=== PATIENT | male | born 1940 ===

== ENCOUNTER 2023-07-12 23:59 | Outpatient (BNV) | payer MEDICARE, MEDICAID, SELFPAY | END 2023-07-14 23:59 | PROVIDERS: Visit Provider Internal Medicine | DX: I48.0 Paroxysmal atrial fibrillation (principal); N17.9 Acute kidney failure, unspecified; N18.9 Chronic kidney disease, unspecified; E11.9 Type 2 diabetes mellitus without complications | CPT/HCPCS: 99223 ==